=== PATIENT | female | born 1935 | race Caucasian/White ===

== ENCOUNTER 2017-09-15 09:37 | Outpatient (CLI) | payer MEDICARE ==
--- NOTE | 2017-09-15 10:51 | RAD ---
PA AND LATERAL CHEST: Date: 09/15/17 HISTORY: Cough. COMPARISON: None available. FINDINGS: Minimal linear densities are seen in the lower aspect of the right mid lung zone which may be related to atelectasis. Similar findings are seen in the left upper lobe laterally. No consolidation or pleu ral fluid is seen. Cardiac silhouette and pulmonary vasculature are within normal limits. Vascular ca lcifications are seen in the thoracic and abdominal aorta. Degenerative changes are present in the sp ine. IMPRESSION: Linear densities in the right mid lung zone and lateral aspect left upper lung zone which could be re lated to atelectasis or areas of scarring. However, follow-up chest x-ray is recommended to exclude d eveloping areas of pneumonitis. CODE T. POS: [facility]
== END 2017-09-15 09:38 | disposition home or self-care (01) ==
LOC: RAD-FRANK 09:37
PROVIDERS: ATTEND Nurse Practitioner Family
DX: R05 Cough (principal); J98.4 Other disorders of lung
CPT/HCPCS: 71046

== ENCOUNTER 2017-09-18 16:10 | Observation (INO) | payer MEDICARE, OTHER ==
[2017-09-18] MEDS ORDERED: Ondansetron HCl/PF 4 MG/2 ML Vial ONE (16:33)
--- NOTE | 2017-09-18 17:00 | RAD ---
CHEST ONE VIEW 09/18/17 HISTORY: Cough. COMPARISON: None. FINDINGS: Normal cardiac silhouette. The pulmonary vessels and hilum are normal. Costophrenic angles are clear. There are patchy interstitial opacities which may be due to edema or infiltrate. No consolidation or mass. No pneumothorax or osseous abnormalities. IMPRESSION: Interstitial opacities which may be due to edema or infiltrate. Continued surveillance is recommended . POS: [facility]
[2017-09-18 17:06] LABS: ALT (SGPT) 908 U/L (8-55); AST (SGOT) 1260 U/L (5-34); Alkaline Phosphatase 189 U/L (40-150); Anion Gap 16 mmol/L (10-20); BUN (Urea Nitrogen) 22 mg/dL (9.8-20.1); Bilirubin, Total 0.9 mg/dL (0.2-1.2); Calc. Creatinine Clearance 0 mL/min (70-130); Calcium 9.2 mg/dL (7.8-10.44); Carbon Dioxide 24 mmol/L (23-31); Chloride 102 mmol/L (98-107); Estimated GFR-MDRD 73; Globulin 3.2 g/dL (2.4-3.5); Glucose 166 mg/dL (83-110); Lipase 47 U/L (8-78); Potassium 4.1 mmol/L (3.5-5.1); Protein, Total 7.2 g/dL (6.0-8.3); Sodium 138 mmol/L (136-145)
[2017-09-18 17:08] LABS: CKMB 1.8 ng/mL (0-6.6); Troponin I Less than 0.010 ng/mL (< 0.028)
[2017-09-18] MEDS ORDERED: Acetaminophen 325 MG TAB PO PRN (20:00)
[2017-09-18] MEDS ORDERED: Ondansetron ODT 4 MG TAB SL PRN (20:00)
[2017-09-18] MEDS ORDERED: Lisinopril 10 MG TAB PO SCH (20:00)
[2017-09-18] MEDS ORDERED: Ondansetron HCl/PF 4 MG/2 ML Vial IVP PRN (20:00)
[2017-09-18] MEDS ORDERED: Nadolol 40 MG TAB PO SCH (20:00)
[2017-09-18] MEDS ORDERED: hydrALAZINE 20 MG/ML VIAL SLOW IVP SCH (20:15)
[2017-09-18] MEDS ORDERED: Prevnar 13-Val Conj/PF 0.5 ML SYRINGE IM ONE (20:45)
[2017-09-18] MEDS ORDERED: Ibuprofen 200 MG TAB PO PRN (21:54)
[2017-09-18 22:39] VITALS: BMI 28.5
[2017-09-18 22:52] LABS: #Lymphocytes 1.9 thou/uL (1.20-3.40); #Monocytes 0.2 thou/uL (0.11-0.59); #Neutrophils 4.4 thou/uL (1.40-6.50); %Basophils 0.7 % (0.0-1.0); %Eosinophils 0.2 % (0.0-10.0); %Lymphocytes 28.6 % (21.0-51.0); %Monocytes 3.7 % (0.0-10.0); %Neutrophils 66.8 % (42.0-75.0); Mean Corpuscular HGB CONC 34.3 g/dL (32.0-36.0); Mean Corpuscular Hemoglobin 31.3 pg (27.0-31.0); Mean Corpuscular Volume 91.4 fl (81.0-99.0); Mean Platelet Volume 6.6 fL (7.4-10.4); Platelet Count 210 thou/uL (130-400); RBC Distribution Width 11.7 % (11.5-14.5); Red Blood Cell (RBC) Count 4.14 mill/uL (4.20-5.40); White Blood Cell (WBC) Count 6.6 thou/uL (4.8-10.8)
[2017-09-18 23:07] LABS: Phosphorus 3.3 mg/dL (2.3-4.7)
[2017-09-18 23:13] LABS: Troponin I Less than 0.010 ng/mL (< 0.028)
[2017-09-19] MEDS ORDERED: Senokot 8.6 MG TAB PO PRN (01:43)
[2017-09-19] MEDS ORDERED: Calcium Carbonate 500 MG ChewTAB PO PRN (01:43)
[2017-09-19] MEDS ORDERED: Nitroglycerin 0.4 MG TAB (25 Tab Bottle) PO PRN (01:43)
--- NOTE | 2017-09-19 02:07 | HP ---
DATE OF ADMISSION: 09/18/2017 The patient was seen and examined on 09/18/2017 CHIEF COMPLAINT: Generalized weakness along with shortness of breath. HISTORY OF PRESENT ILLNESS: Patient is an 82-year-old female with hypertension who presented to the emergency room with above complaints. Over the last 2 weeks or so, the patient has gradual worsening cough. The cough was productive of sm all amount of thick phlegm. She also had some shortness of breath on mild to moderate exertion. She denied any palpitations, lightheadedness, dizziness or syncope. Three days ago, the patient was nery luated by her primary care physician at [facility] and was diagnosed with suspected pneumonia . She was started on azithromycin and prednisone. She felt better the next day. However, over the last 2 days or so, patient has been nauseous without significant vomiting. She denied any abdominal discomfort. Her shortness of breath and coughing has worsened over the last 24 hours. In the emergency room, her vital signs showed temperature 98.7, respiration 18, pulse rate of 60 with a blood pressure 171/83 with O2 saturation 97% on room air. EKG showed left bundle branch block. C hest x-ray showed increased interstitial markings. Her LFTs were abnormal at AST 1260, ALT 908, martina line phosphatase 189. She received 500 mL of NS along with Zofran in the emergency room. PAST MEDICAL HISTORY: Hypertension, hyperlipidemia, recently diagnosed pneumonia. PAST SURGICAL HISTORY: Hysterectomy. ALLERGIES: The patient is allergic to PENICILLIN. CURRENT HOME MEDICATIONS: Ezetimibe 10 mg daily, lisinopril 10 mg daily, nadolol 40 mg daily, azithr omycin and prednisone started 2 days ago. SOCIAL HISTORY: Currently lives at home, alone. No smoking, alcohol or drug use. She is full code, makes her own decision with the help of her family. FAMILY HISTORY: She denies any premature coronary artery disease. REVIEW OF SYSTEMS: The following complete review of systems was negative, unless otherwise mentioned in the HPI or below: Constitutional: Weight loss or gain, ability to conduct usual activities. Skin: Rash, itching. Eyes: Double vision, pain. ENT/Mouth: Nose bleeding, neck stiffness, pain, tenderness. Cardiovascular: Palpitations, dyspnea on exertion, orthopnea. Respiratory: Shortness of breath, wheezing, cough, hemoptysis, fever or night sweats. Gastrointestinal: Poor appetite, abdominal pain, heartburn, nausea, vomiting, constipation, or diarr hea. Genitourinary: Urgency, frequency, dysuria, nocturia. Musculoskeletal: Pain, swelling. Neurologic/Psychiatric: Anxiety, depression. Allergy/Immunologic: Skin rash, bleeding tendency. PHYSICAL EXAMINATION: VITAL SIGNS: As discussed above. GENERAL: An 82-year-old female in no apparent distress. Feels generally weak. HEENT: Head is atraumatic, normocephalic. Sclerae are anicteric. Moist mucous membrane, no oral le mary. NECK: Supple, no JVD appreciated. No carotid bruit. LUNGS: Showed scattered rhonchi, without any wheezing. Lungs were symmetrical. Minimal bibasilar r ales noted. HEART: S1, S2 present. Regular rate and rhythm. No rubs or gallops appreciated. ABDOMEN: Soft, nontender, bowel sounds present. EXTREMITIES: No edema or calf tenderness. NEUROLOGIC: Grossly nonfocal, moves all four extremities. PSYCHIATRY: Alert, awake, oriented x3. SKIN: Warm and dry. LYMPH NODES: No palpable lymph nodes in the neck. PERIPHERAL VASCULAR: Radial pulses palpable bilaterally. MUSCULOSKELETAL: No joint swelling or tenderness. LABORATORY DATA AND X-RAY FINDINGS: BNP 554. Troponins were negative. TSH normal. AST, ALT and al kaline phosphatase as discussed above. BUN 22, creatinine 0.76 with normal sodium and potassium. CB C showed WBC 6.6 with hemoglobin 13, platelet count of 210. EKG and chest x-ray by my review as disc ussed above. IMPRESSION AND PLAN: 1. Shortness of breath, multifactorial. The patient has elevated BNP with recently diagnosed pneumo daniela. An echocardiogram will be obtained. Cardiology will be consulted. The patient will be kept n. p.o. past midnight. 2. Abnormal liver function tests. Possibilities include medication associated hepatitis versus abno rmal LFTs from passive hepatic congestion. The patient was started on azithromycin and prednisone 2 days ago. We will check right upper quadrant ultrasound. 3. Recently diagnosed pneumonia, on azithromycin and prednisone. Respiratory viral panel has been d one and pending at this time. Please note that the patient has cough that has been ongoing for 2 wee ks or so. 4. Chronic kidney disease stage 2. 5. Hypertension. Home medications will be resumed. 6. Left bundle branch block, chronic. 7. Hyperlipidemia. We will hold statins for now due to abnormal liver function tests. Plan of care was discussed with the patient in detail. She stated understanding.
[2017-09-19 04:54] LABS: Anion Gap 12 mmol/L (10-20); BUN (Urea Nitrogen) 19 mg/dL (9.8-20.1); Calc. Creatinine Clearance 68 mL/min (70-130); Carbon Dioxide 25 mmol/L (23-31); Chloride 104 mmol/L (98-107); Estimated GFR-MDRD 76; Glucose 105 mg/dL (83-110); Potassium 3.9 mmol/L (3.5-5.1); Sodium 137 mmol/L (136-145)
[2017-09-19 04:57] LABS: ALT (SGPT) 640 U/L (8-55); AST (SGOT) 450 U/L (5-34); Albumin 3.7 g/dL (3.4-4.8); Alkaline Phosphatase 201 U/L (40-150); Bilirubin, Direct 0.3 mg/dL (0.1-0.3); Bilirubin, Total 0.7 mg/dL (0.2-1.2); Protein, Total 6.7 g/dL (6.0-8.3)
[2017-09-19 05:01] LABS: Troponin I Less than 0.010 ng/mL (< 0.028)
[2017-09-19] MEDS: Aspirin 325 mg Enteric Coated Tablet PO SCH (08:23)
[2017-09-19] MEDS: Furosemide 20 MG/2 ML VIAL SLOW IVP SCH (08:24)
[2017-09-19] MEDS ORDERED: Lisinopril 10 MG TAB PO SCH ×3 (09:00→21:00)
[2017-09-19] MEDS ORDERED: Nadolol 40 MG TAB PO SCH (09:00)
[2017-09-19] MEDS ORDERED: Aspirin 325 MG TAB PO SCH (09:00)
[2017-09-19] MEDS: Ezetimibe 10 MG TAB PO SCH (09:36)
[2017-09-19] MEDS: guaiFENesin ER 600 MG TAB PO SCH ×2 (09:37→19:44)
--- NOTE | 2017-09-19 09:54 | ULT ---
GALLBLADDER ULTRASOUND: Date: 09/19/17 HISTORY: Abnormal liver function tests. COMPARISON: None. TECHNIQUE: Utilizing multihertz transducer, sonographic imaging of the right upper quadrant is performed in the longitudinal and transverse plane. FINDINGS: Increased echogenicity of the liver may be due to hepatic steatosis or hepatocellular disease. Subseq uent evaluation for hepatic masses and intrahepatic biliary dilatation is limited. Right hepatic lobe measures 12.1 cm. Pancreas is obscured by bowel gas. Suboptimal evaluation of gallbladder. Questionable wall echo shadow sign, which would imply extensive cholelithiasis. Questionable gallbladder wall thickening. Negative Bateman's sign. Common bile duct d iameter is 0.7 cm. No hydronephrosis. Right kidney measures 5.2 x 8.9 x 5.3 cm. IMPRESSION: Questionable wall echo shadow sign implying gallbladder filled with multiple gallstones. Similar appe arance can be seen in a patient who has had a previous cholecystectomy with bowel loop now entering t he gallbladder fossa. Clinical correlation, along with correlation with surgical history is recommend ed. Common bile duct appears to be enlarged. Further evaluation with HIDA scan may be beneficial. POS: [facility]
[2017-09-19] MEDS ORDERED: Carvedilol 6.25 MG TAB PO SCH (10:45)
--- NOTE | 2017-09-19 14:41 | CON ---
DATE OF CONSULTATION: 09/19/2017 CARDIOLOGY CONSULTATION REASON FOR CONSULTATION: Shortness of breath. HISTORY OF PRESENT ILLNESS: Mrs. Carrasquillo is a pleasant 82-year-old white female who [facility] for shortness of breath and cough. She was diagnosed by her PCP with pneumonia and given some ant ibiotics. She did see some improvement for about 2-3 days, but then she started getting worse again, so she decided to come in for evaluation. She was admitted for concern of complicated pneumonia marc zehra CHF as her BNP was slightly elevated, so Cardiology is being consulted for this. Currently, Mrs. Carrasquillo is feeling pretty much the same as she did yesterday. No significant improvemen t in her symptoms. Continues to have cough. She says she has been dealing with it for the last aurelia h since the beginning of August at least. She has never had any heart problems in the past. PAST MEDICAL HISTORY: 1. Hypertension. 2. Hyperlipidemia. PAST SURGICAL HISTORY: Hysterectomy. OUTPATIENT MEDICATIONS: Include, 1. Zetia 10 mg a day. 2. Lisinopril 10 mg a day. 3. Nadolol 40 mg b.i.d. 4. Azithromycin and prednisone given just 2 days ago. ALLERGIES: PENICILLIN. SOCIAL HISTORY: Lives at home. No alcohol, tobacco or drugs. FAMILY HISTORY: Noncontributory. REVIEW OF SYSTEMS: A 12 point review of systems was done and it is all negative unless stated in his tory of present illness. PHYSICAL EXAMINATION: VITAL SIGNS: Temperature 98.6, pulse 59, respiratory rate 24, satting 95% on room air, blood pressur e 216/98. GENERAL: Awake, alert, oriented x3, in no distress. HEENT: Normocephalic, atraumatic. NECK: Supple. LUNGS: Clear. CARDIOVASCULAR: S1, S2, no S3 or S4, no murmurs, no rubs. ABDOMEN: Soft, positive bowel sounds. EXTREMITIES: Trace edema. SKIN: Warm and dry. LABORATORY DATA: Laboratory work was reviewed. White count of 6.6, hemoglobin of 13, hematocrit of 37 and platelet count of 210. Chemistries were unremarkable except for AST, ALT and alkaline phospha tase, were all elevated, BNP was 554. Troponin was negative x3. Normal TSH, normal lipase, albumin was 4.0. IMAGING DATA: EKG was reviewed, there is bundle branch block. ASSESSMENT AND PLAN: Shortness of breath: Chest x-ray consistent with edema versus infiltrate. BNP is just slightly elevated. At this moment in time, I would wait for echocardiogram to decide whethe r there is any level of heart failure. Most likely, she does have diastolic dysfunction and her bloo d pressure being this high as is not helping, so we will try to control it by increasing her lisinopr il to 20 mg twice a day and we will continue to give p.r.n. hydralazine. We will change nadolol to C oreg at a low dose as she is somewhat bradycardic. Thank you for letting me to participate in care of your patient. Further recommendations per results of echo.
--- NOTE | 2017-09-19 15:34 | CT ---
CT OF THE ABDOMEN AND PELVIS WITHOUT CONTRAST: Date: 09/19/17 PROVIDED CLINICAL HISTORY: Abdominal pain, possible gallstones on ultrasound. FINDINGS: The visualized lung bases are free of significant opacity. There is a large, exophytic, simple appearing cyst emanating from the superior pole of the left kidne y measuring about 7.2 cm. The solid abdominal organs demonstrate an otherwise unremarkable unenhanced CT appearance, suboptimally evaluated without contrast. The gallbladder is conspicuously decompressed. There are several small calcifications present along t he fundus of the gallbladder; however, these do not appear dependently located. No additional calcifi ed gallstones are seen. The gastric antrum and duodenum immediately overlie this region and may have produced the ultrasound appearance described. There is no bowel dilatation, inflammatory fat stranding, free fluid, or free air apparent. Occasional vascular calcifications are seen. The osseous structures demonstrate no concerning lytic or blastic lesions. IMPRESSION: Several calcifications are noted associated with the gallbladder wall, nonspecific. No definite CT ev idence for gallstones, though some gallstone composition types can be radiolucent. Given the position of the duodenum and antrum on CT, it is likely that these produce the sonographic appearance describ ed. POS: [facility]
--- NOTE | 2017-09-19 15:57 | PDOC.PN ---
- Subjective Encounter Start Date: 09/19/17 Encounter Start Time: 15:55 Subjective: feels poorly,left sided AP,nausea,dry mouth & weakness. -: cough persists -: c/o not getting enough air - Objective Resuscitation Status: Resuscitation Status FULL:Full Resuscitation MAR Reviewed: Yes Vital Signs & Weight: Vital Signs (12 hours) Temp Pulse Resp BP Pulse Ox 09/19/17 15:05 98.3 F 59 L 16 162/71 H 92 L 09/19/17 12:03 97.3 F L 61 20 163/69 H 92 L 09/19/17 11:05 52 L 16 09/19/17 09:39 199/90 H 09/19/17 08:20 98.6 F 59 L 24 H 216/98 H 95 09/19/17 07:57 98.4 F 55 L 16 Weight Weight 156 lb I&O: 09/18/17 09/19/17 09/20/17 06:59 06:59 06:59 Intake Total 720 10 Output Total 1100 900 Balance -380 -890 Result Diagrams: 09/18/17 22:38 09/19/17 04:09 Additional Labs: Laboratory Tests 09/18/17 09/18/17 09/18/17 16:40 22:38 22:38 AST 1260 H ALT 908 H Alkaline Phosphatase 189 H B-Natriuretic Peptide 554.4 H TSH 3rd Generation 0.9688 09/19/17 04:09 AST 450 H ALT 640 H Alkaline Phosphatase 201 H B-Natriuretic Peptide TSH 3rd Generation Microbiology 09/19/17 00:38 Nasopharyngeal swab Respiratory Panel (PCR) - Final Phys Exam - Physical Examination Constitutional: NAD HEENT: PERRLA, moist MMs, sclera anicteric, oral pharynx no lesions Neck: no nodes, no JVD, supple, full ROM Respiratory: no wheezing, no rales, no rhonchi, clear to auscultation bilateral Cardiovascular: RRR, no significant murmur, no rub, gallop Gastrointestinal: soft, non-tender, no distention, positive bowel sounds Musculoskeletal: no edema, pulses present Neurological: non-focal, normal sensation, moves all 4 limbs Psychiatric: normal affect, A&O x 3 Skin: no rash Dx/Plan (1) Dyspnea Code(s): R06.00 - DYSPNEA, UNSPECIFIED Status: Acute Qualifiers: Dyspnea type: dyspnea on exertion Qualified Code(s): R06.09 - Other forms of dyspnea (2) PNA (pneumonia) Code(s): J18.9 - PNEUMONIA, UNSPECIFIED ORGANISM Status: Acute (3) Fluid overload, unspecified Code(s): E87.70 - FLUID OVERLOAD, UNSPECIFIED Status: Acute (4) LFTs abnormal Code(s): R94.5 - ABNORMAL RESULTS OF LIVER FUNCTION STUDIES Status: Acute (5) HTN (hypertension) Code(s): I10 - ESSENTIAL (PRIMARY) HYPERTENSION Status: Acute (6) Gall bladder disease Code(s): K82.9 - DISEASE OF GALLBLADDER, UNSPECIFIED Status: Acute Comment: Calcifications... ? Porcelain Gallbladder. - Plan continue antibiotics, out of bed/ambulate, DVT proph w/SCDs cont low dose lasix for possible mild fluid OL.ECHO pending.cardiology recs -: -Coreg instead of nadolol.increased lisniopril -: No gallstones but gallbladder calcification w Abnl LFT.will consult GS -: may need Cholecystectomy for all these non specific symtoms/LFT elevation -: HD stable.Monitor I/Os.am labs. LFT trending down. * .restart Outpt ABx and Po steroids to finish course. Review of Systems - Review of Systems Constitutional: weakness, malaise Respiratory: Cough, Shortness of Breath, SOB with Excertion. negative: Dry, Hemoptysis, Pleuritic Pain, Sputum, Wheezing Cardiovascular: negative: chest pain, palpitations, orthopnea, paroxysmal nocturnal dyspnea, edema, light headedness, other Gastrointestinal: negative: Nausea, Vomiting, Abdominal Pain, Diarrhea, Constipation, Melena, Hematochezia, Other Genitourinary: negative: Dysuria, Frequency, Incontinence, Hematuria, Retention , Other Musculoskeletal: negative: Neck Pain, Shoulder Pain, Arm Pain, Back Pain, Hand Pain, Leg Pain, Foot Pain, Other Skin: negative: Rash, Lesions, Vasquez, Bruising, Other Neurological: negative: Weakness, Numbness, Incoordination, Change in Speech, Confusion, Seizures, Other - Medications/Allergies Allergies/Adverse Reactions: Allergies Allergy/AdvReac Type Severity Reaction Status Date / Time Penicillins Allergy Verified 09/18/17 19:51 Medications: Current Medications Albuterol/Ipratropium (Duoneb) 3 ml NEB [id number] PRN PRN Reason: SOB &/or Wheezing Last Admin: 09/19/17 11:05 Dose: 3 ml Aspirin (Ecotrin) 325 mg PO DAILY [facility] Last Admin: 09/19/17 08:23 Dose: 325 mg Calcium Carbonate (Tums) 1,000 mg PO Q4H PRN PRN Reason: Heartburn or Indigestion Carvedilol (Coreg) 6.25 mg PO BID-[facility] Ezetimibe (Zetia) 10 mg PO DAILY [facility] Last Admin: 09/19/17 09:36 Dose: 10 mg Furosemide (Lasix) 20 mg SLOW IVP DAILY [facility] Last Admin: 09/19/17 08:24 Dose: 20 mg Guaifenesin (Mucinex) 1,200 mg PO Q12HR [facility] Last Admin: 09/19/17 09:37 Dose: 1,200 mg Hydralazine HCl (Apresoline) 10 mg SLOW IVP Q4H PRN PRN Reason: Blood Pressure Lisinopril (Zestril) 20 mg PO DAILY [facility] Nitroglycerin (Nitrostat) 0.4 mg PO Q5MIN PRN PRN Reason: Chest Pain Senna (Senokot) 2 tab PO HSPRN PRN PRN Reason: Constipation Sodium Chloride (Flush - Normal Saline) 10 ml IVF Q12HR [facility] Last Admin: 09/19/17 08:24 Dose: 10 ml Sodium Chloride (Flush - Normal Saline) 10 ml IVF PRN PRN PRN Reason: Saline Flush
--- NOTE | 2017-09-19 16:12 | PDOC.EVN ---
Event Note - Event Note Event Note: Code status discussed with Pt in detail. After explanation of the different resuscitation measures, she is a Full Code.
[2017-09-19] MEDS: Carvedilol 6.25 MG TAB PO SCH (16:20)
[2017-09-19] MEDS: Azithromycin 250 MG TAB PO SCH (16:22)
[2017-09-19] MEDS: predniSONE 50 MG TAB PO SCH (16:22)
--- NOTE | 2017-09-19 18:16 | CON ---
DATE OF CONSULTATION: 09/19/2017 CHIEF COMPLAINT: Cough. HISTORY: This is an 82-year-old female who came to the hospital with a productive cough. She was co ughing so much and bringing up phlegm. She said that she started having some nausea and vomiting. O n evaluation, she was found to have elevated liver function tests, so they did a workup. She denies any abdominal pain. PAST MEDICAL HISTORY: Significant for hypertension, hyperlipidemia, and pneumonia. PAST SURGICAL HISTORY: Hysterectomy. MEDICATIONS: Lisinopril, nadolol, azithromycin, prednisone, Ezetimibe 10 daily. SOCIAL HISTORY: She lives alone. No tobacco or alcohol. PHYSICAL EXAMINATION: VITAL SIGNS: Temperature 98.3, pulse 59, blood pressure 162/71. GENERAL: She is awake, alert, in no apparent distress. HEENT: No jaundice. LUNGS: Clear. HEART: Regular rate and rhythm. ABDOMEN: Soft, nondistended, nontender. LABORATORY DATA AND X-RAY FINDINGS: Her white count 6.6, H&H is 13 and 37, platelet count 210. Elec trolytes are fine. AST is 450, ALT is 640, alkaline phosphatase of 201. Her common bile duct was so mewhat enlarged. They did not really see any definite gallstones on ultrasound. She had a CT scan t hat confirmed that they did not see any gallstones. ASSESSMENT: This elevated liver function may be just related to underlying cardiac dysfunction and m edications, but with the enlarged common duct, may want to consider GI consult. Also, she may benefi t from a HIDA scan.
[2017-09-20 04:25] LABS: #Lymphocytes 2.3 thou/uL (1.20-3.40); #Monocytes 0.4 thou/uL (0.11-0.59); #Neutrophils 5.2 thou/uL (1.40-6.50); %Basophils 0.2 % (0.0-1.0); %Eosinophils 0.2 % (0.0-10.0); %Lymphocytes 28.4 % (21.0-51.0); %Monocytes 5.1 % (0.0-10.0); %Neutrophils 66.1 % (42.0-75.0); Hemoglobin 13.1 g/dL (12.0-16.0); Mean Corpuscular HGB CONC 34.9 g/dL (32.0-36.0); Mean Corpuscular Hemoglobin 31.2 pg (27.0-31.0); Mean Corpuscular Volume 89.4 fl (81.0-99.0); Mean Platelet Volume 6.6 fL (7.4-10.4); Platelet Count 253 thou/uL (130-400); RBC Distribution Width 11.7 % (11.5-14.5); Red Blood Cell (RBC) Count 4.19 mill/uL (4.20-5.40); White Blood Cell (WBC) Count 7.9 thou/uL (4.8-10.8)
[2017-09-20] MEDS: hydrALAZINE 20 MG/ML VIAL SLOW IVP PRN ×2 (04:30→18:45)
[2017-09-20 04:37] LABS: ALT (SGPT) 402 U/L (8-55); AST (SGOT) 131 U/L (5-34); Albumin 3.6 g/dL (3.4-4.8); Alkaline Phosphatase 179 U/L (40-150); Anion Gap 13 mmol/L (10-20); BUN (Urea Nitrogen) 21 mg/dL (9.8-20.1); Bilirubin, Total 0.7 mg/dL (0.2-1.2); Calc. Creatinine Clearance 62 mL/min (70-130); Calcium 8.8 mg/dL (7.8-10.44); Carbon Dioxide 25 mmol/L (23-31); Chloride 100 mmol/L (98-107); Estimated GFR-MDRD 68; Globulin 2.9 g/dL (2.4-3.5); Glucose 142 mg/dL (83-110); Potassium 3.5 mmol/L (3.5-5.1); Protein, Total 6.5 g/dL (6.0-8.3); Sodium 134 mmol/L (136-145)
[2017-09-20 04:41] LABS: Troponin I Less than 0.010 ng/mL (< 0.028)
[2017-09-20] MEDS ORDERED: cloNIDine 0.1 MG TAB PO PRN (08:28)
[2017-09-20] MEDS ORDERED: Lisinopril 10 MG TAB PO SCH (09:00)
[2017-09-20] MEDS ORDERED: Metolazone 5 MG TAB PO SCH (09:15)
[2017-09-20] MEDS ORDERED: Morphine 5 MG/ML SYRINGE SLOW IVP SCH (11:45)
[2017-09-20] MEDS: guaiFENesin ER 600 MG TAB PO SCH ×2 (13:47→19:56)
[2017-09-20] MEDS: Ezetimibe 10 MG TAB PO SCH (13:47)
[2017-09-20] MEDS: Carvedilol 6.25 MG TAB PO SCH ×2 (13:47→17:31)
[2017-09-20] MEDS: Aspirin 325 mg Enteric Coated Tablet PO SCH (13:48)
[2017-09-20] MEDS: Furosemide 20 MG/2 ML VIAL SLOW IVP SCH (13:49)
--- NOTE | 2017-09-20 14:08 | PDOC.PN ---
- Subjective Encounter Start Date: 09/20/17 Encounter Start Time: 14:06 Subjective: wants to go home & upset about it with resultant high BP -: feels tired,still coughing. - Objective Resuscitation Status: Resuscitation Status FULL:Full Resuscitation MAR Reviewed: Yes Vital Signs & Weight: Vital Signs (12 hours) Temp Pulse Resp BP BP Pulse Ox 09/20/17 11:13 98.1 F 63 18 205/86 H 93 L 09/20/17 08:00 98.1 F 62 18 09/20/17 07:18 98.1 F 62 18 180/76 H 91 L 09/20/17 05:24 140/65 09/20/17 04:30 60 09/20/17 04:20 98.7 F 60 16 180/78 H 93 L Weight Weight 153 lb 6.4 oz I&O: 09/19/17 09/20/17 09/21/17 06:59 06:59 06:59 Intake Total 720 1200 Output Total 1100 2400 Balance -380 -1200 Result Diagrams: 09/20/17 03:58 09/20/17 03:58 Additional Labs: Laboratory Tests 09/18/17 09/18/17 09/18/17 16:40 16:40 22:38 AST 1260 H ALT 908 H Alkaline Phosphatase 189 H Troponin I Less than 0.010 Less than 0.010 B-Natriuretic Peptide 09/18/17 09/19/17 09/19/17 22:38 04:09 04:09 AST 450 H ALT 640 H Alkaline Phosphatase 201 H Troponin I Less than 0.010 B-Natriuretic Peptide 554.4 H 09/20/17 09/20/17 09/20/17 03:58 03:58 03:58 AST 131 H ALT 402 H Alkaline Phosphatase 179 H Troponin I Less than 0.010 B-Natriuretic Peptide 243.3 H Phys Exam - Physical Examination Constitutional: NAD HEENT: PERRLA, moist MMs, sclera anicteric, oral pharynx no lesions Neck: no nodes, no JVD, supple, full ROM Respiratory: no wheezing, no rales, no rhonchi, clear to auscultation bilateral Cardiovascular: RRR, no significant murmur, no rub, gallop Gastrointestinal: soft, non-tender, no distention, positive bowel sounds Musculoskeletal: no edema, pulses present Neurological: non-focal, normal sensation, moves all 4 limbs Psychiatric: A&O x 3 apperas depressed Skin: no rash Dx/Plan (1) Acute diastolic CHF (congestive heart failure) Code(s): I50.31 - ACUTE DIASTOLIC (CONGESTIVE) HEART FAILURE Status: Acute (2) Uncontrolled hypertension Code(s): I10 - ESSENTIAL (PRIMARY) HYPERTENSION Status: Acute (3) PNA (pneumonia) Code(s): J18.9 - PNEUMONIA, UNSPECIFIED ORGANISM Status: Acute (4) LFTs abnormal Code(s): R94.5 - ABNORMAL RESULTS OF LIVER FUNCTION STUDIES Status: Acute Comment: yahairavictor manuel passive heaptic congestion from CHF (5) Fluid overload, unspecified Code(s): E87.70 - FLUID OVERLOAD, UNSPECIFIED Status: Acute Qualifiers: Hypervolemia type: other Qualified Code(s): E87.79 - Other fluid overload (6) Dyspnea Code(s): R06.00 - DYSPNEA, UNSPECIFIED Status: Resolved Qualifiers: Dyspnea type: dyspnea on exertion Qualified Code(s): R06.09 - Other forms of dyspnea (7) HTN (hypertension) Code(s): I10 - ESSENTIAL (PRIMARY) HYPERTENSION Status: Acute (8) Gall bladder disease Code(s): K82.9 - DISEASE OF GALLBLADDER, UNSPECIFIED Status: Acute Comment: Calcifications... ? Porcelain Gallbladder. - Plan plan discussed w/ family, PT/OT, social sciences lecturer, incentive spirometry, out of bed/ambulate, DVT proph w/SCDs BP uncontrolled. lisinopril increased again today.monitor.d/y anxiety -: 1 dose zaroxolyn.cont lasix.cardiology following. BB,jorge-I. -: ECHO shows diastoilc dysfunction -: cont PO prednisone & Azithromycin for possible PNA/ac bronchitis. -: mucinex,nebs .O2 weaned off * .appreciate GS input. HIDA today-results pending. work upcan be finished as an Outpt w GI if no Acute cholecystitis. * Home when BP stable. * LFT trending down Review of Systems - Review of Systems Constitutional: weakness, malaise. negative: fever, chills, sweats, other ENT: negative: Ear Pain, Ear Discharge, Nose Pain, Nose Discharge, Nose Congestion, Mouth Pain, Mouth Swelling, Throat Pain, Throat Swelling, Other Respiratory: negative: Cough, Dry, Shortness of Breath, Hemoptysis, SOB with Excertion, Pleuritic Pain, Sputum, Wheezing Cardiovascular: negative: chest pain, palpitations, orthopnea, paroxysmal nocturnal dyspnea, edema, light headedness, other Gastrointestinal: negative: Nausea, Vomiting, Abdominal Pain, Diarrhea, Constipation, Melena, Hematochezia, Other Genitourinary: negative: Dysuria, Frequency, Incontinence, Hematuria, Retention , Other Musculoskeletal: negative: Neck Pain, Shoulder Pain, Arm Pain, Back Pain, Hand Pain, Leg Pain, Foot Pain, Other Skin: negative: Rash, Lesions, Vasquez, Bruising, Other Neurological: negative: Weakness, Numbness, Incoordination, Change in Speech, Confusion, Seizures, Other - Medications/Allergies Allergies/Adverse Reactions: Allergies Allergy/AdvReac Type Severity Reaction Status Date / Time Penicillins Allergy Verified 09/18/17 19:51 Medications: Current Medications Albuterol/Ipratropium (Duoneb) 3 ml NEB [id number] PRN PRN Reason: SOB &/or Wheezing Last Admin: 09/19/17 11:05 Dose: 3 ml Aspirin (Ecotrin) 325 mg PO DAILY [facility] Last Admin: 09/20/17 13:48 Dose: 325 mg Azithromycin (Zithromax) 250 mg PO 1700 [facility] Last Admin: 09/19/17 16:22 Dose: 250 mg Calcium Carbonate (Tums) 1,000 mg PO Q4H PRN PRN Reason: Heartburn or Indigestion Carvedilol (Coreg) 6.25 mg PO BID-[facility] Last Admin: 09/20/17 13:47 Dose: 6.25 mg Clonidine (Catapres) 0.1 mg PO Q4H PRN PRN Reason: SBP>150 Ezetimibe (Zetia) 10 mg PO DAILY [facility] Last Admin: 09/20/17 13:47 Dose: 10 mg Furosemide (Lasix) 20 mg SLOW IVP DAILY [facility] Last Admin: 09/20/17 13:49 Dose: 20 mg Guaifenesin (Mucinex) 1,200 mg PO Q12HR [facility] Last Admin: 09/20/17 13:47 Dose: 1,200 mg Hydralazine HCl (Apresoline) 10 mg SLOW IVP Q4H PRN PRN Reason: Blood Pressure Last Admin: 09/20/17 04:30 Dose: 10 mg Lisinopril (Zestril) 20 mg PO DAILY [facility] Last Admin: 09/20/17 13:48 Dose: 20 mg Nitroglycerin (Nitrostat) 0.4 mg PO Q5MIN PRN PRN Reason: Chest Pain Prednisone (Prednisone) 50 mg PO 1700 [facility] Stop: 09/20/17 17:01 Last Admin: 09/19/17 16:22 Dose: 50 mg Senna (Senokot) 2 tab PO HSPRN PRN PRN Reason: Constipation Sodium Chloride (Flush - Normal Saline) 10 ml IVF Q12HR [facility] Last Admin: 09/20/17 13:49 Dose: 10 ml Sodium Chloride (Flush - Normal Saline) 10 ml IVF PRN PRN PRN Reason: Saline Flush
--- NOTE | 2017-09-20 14:20 | NM ---
HIDA SCAN: Date: 09/20/17 PROVIDED CLINICAL HISTORY: Enlarged common duct, elevated LFTs. RADIOPHARMACEUTICAL: 5.1 mCi technetium-99m labeled mebrofenin IV. FINDINGS: Comparison is made with the CT examination performed 09/19/17. On the CT examination, the gallbladder is located near the lateral right hepatic margin. It is decomp ressed, not distended, demonstrates no wall thickening or surrounding pericholecystic inflammatory ch greg. After administration of radiotracer, there is prompt uptake of radiotracer by the hepatic parenchyma. There is excretion into the biliary system and bowel in a normal amount of time. The gallbladder is not visualized during the initial 60 minutes which imaging was obtained. Morphine was administered an d delayed images were obtained. Radiopharmaceutical is noted in the region of the mike hepatis and d uodenum/stomach. There is no radiotracer seen in the expected location of the gallbladder. IMPRESSION: 1. No evidence for complete common duct obstruction. 2. Nonvisualization of the gallbladder. Given the nondistended, normal appearing gallbladder on CT e xamination, acute cholecystitis is felt unlikely, though clinical correlation is necessary. POS: CHUCK
[2017-09-20] MEDS ORDERED: NIFEdipine XL 30 MG TAB PO SCH (17:15)
[2017-09-20] MEDS: Azithromycin 250 MG TAB PO SCH (17:29)
[2017-09-20] MEDS: predniSONE 50 MG TAB PO SCH (17:30)
--- NOTE | 2017-09-20 18:25 | PDOC.CTH ---
Cardiology Progress Note - Subjective Her breathing has improved since starting lasix. - Objective Vital Signs Temp Pulse Resp BP Pulse Ox 09/20/17 16:52 53 L 185/82 H 09/20/17 15:09 97.7 F 55 L 16 181/84 H 94 L 09/20/17 11:13 98.1 F 63 18 205/86 H 93 L 09/20/17 08:00 98.1 F 62 18 09/20/17 07:18 98.1 F 62 18 180/76 H 91 L Weight 153 lb 6.4 oz 09/19/17 09/20/17 09/21/17 06:59 06:59 06:59 Intake Total 720 1200 480 Output Total 1100 2400 Balance -380 -1200 480 - Physical Examination General/Neuro: alert & oriented x3, NAD Neck: no JVD present Lungs: CTA, unlabored respirations Heart: RRR Abdomen: NT/ND Extremities: + edema B (1+) - Telemetry Telemetry Rhythm: NSR - Labs Result Diagrams: 09/20/17 03:58 09/20/17 03:58 Troponin/CKMB CK-MB (CK-2) 1.8 ng/mL (0-6.6) 09/18/17 16:40 Troponin I Less than 0.010 ng/mL (< 0.028) 09/20/17 03:58 - Assessment/Plan 1. Acute on chronic diastolic heart failure 2. LVH 3. HTN. 4. Mild AI. PLAN: - BP control. - Elevated BP may be related to prednisone use. Will increase ACEI and see how she does today. - Will follow.
[2017-09-20] MEDS: Lisinopril 20 MG TAB PO SCH (19:56)
[2017-09-21 08:41] VITALS: BP 177/80; TEMP 97.6
[2017-09-21] MEDS ORDERED: NIFEdipine XL 30 MG TAB PO SCH (09:00)
[2017-09-21] MEDS: Ezetimibe 10 MG TAB PO SCH (09:55)
[2017-09-21] MEDS: Aspirin 325 mg Enteric Coated Tablet PO SCH (09:55)
[2017-09-21] MEDS: Carvedilol 6.25 MG TAB PO SCH (09:55)
[2017-09-21] MEDS: Lisinopril 20 MG TAB PO SCH (09:55)
[2017-09-21] MEDS: guaiFENesin ER 600 MG TAB PO SCH (09:55)
[2017-09-21] MEDS: Furosemide 20 MG/2 ML VIAL SLOW IVP SCH ×2 (09:56→09:58)
--- NOTE | 2017-09-21 15:24 | DIS ---
DATE OF ADMISSION: 09/18/2017 DATE OF DISCHARGE: 09/21/2017 CONDITION AT THE TIME OF DISCHARGE: Stable and improved. DISCHARGE DIAGNOSES: 1. Acute on chronic congestive diastolic heart failure. 2. 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 3. Acute bronchitis. 4. Uncontrolled hypertension with history of essential hypertension. 5. Chronic kidney disease stage 2. 6. Chronic left bundle-branch block. 7. Dyslipidemia. PRIMARY CARE PHYSICIAN: Mirela Pierce, Nurse Practitioner. DISCHARGE FOLLOWUP: 1. [facility]. 2. Primary care physician on 09/28/2017 at 10:[address] Luis Douglas in 2-3 weeks. INHOUSE CONSULTATIONS: 1. Cardiology, Dr. Douglas. 1. General Surgery, Dr. Gifford. PROCEDURES DONE IN THE HOSPITAL: 1. Abdominal ultrasound which shows questionable echo shadow sign implying gallbladder filled with m ultiple gallstones. 2. CT scan of the abdomen and pelvis which did not show any gallstone, but showed calcification of t he gallbladder wall. 3. HIDA scan which is essentially unremarkable. No actual signs suggesting acute cholecystitis and there is no evidence of CBD obstruction. 4. Transthoracic echocardiogram which showed grade 2/3 diastolic dysfunction with EF of 50% to 55% w ithout any significant valvular abnormality. HISTORY OF PRESENT ILLNESS: Ms. Carrasquillo is an 82-year-old female with past medical history of hypertens ion, dyslipidemia, and recent diagnosis of pneumonia as an outpatient on steroids and oral antibiotic s who came into the hospital with complaints of generalized weakness and worsening shortness of breat h despite the antibiotic and the steroids. Upon presentation, her blood pressure was 171/83 and oxyg en saturation 97% on room air. Chest x-ray showed increased interstitial marking and her LFTs were a bnormal with AST 1260, ALT 908, alkaline phosphatase 189. She was admitted with a presumptive diagno sis of possible fluid overload. Her BNP was also elevated to 554 and cardiac enzymes were negative. Echocardiogram was ordered and Cardiology was consulted. Please see admission history and physical for further details. HOSPITAL COURSE: Dr. Douglas saw the patient and she was started on diuretics on admission. This was continued and Dr. Douglas agreed with that. She had elevations and spikes of her blood pressure for which her blood pressure medications were adjusted. She was taking nadolol, which was changed to Cor eg by Cardiology and her lisinopril dose was increased. She was also started on nifedipine. This he lped improve her blood pressure. The echocardiogram suggested diastolic dysfunction, so Lasix was co ntinued. Eventually, she was euvolemic. She was set up with [facility] with regards to katrin t and is being discharged home on Lasix on as needed basis with outpatient followup with Cardiology. With regards to her elevated liver enzymes, they were trended on a daily basis and they trended down. It was most likely secondary to passive hepatic congestion from CHF. She did undergo an abdominal ultrasound; however, to rule out the pathology and it was inconclusive and equivocal for gallstones. For this reason, she underwent a CT scan which showed a calcification of the gallbladder. For this reason and because of her nonspecific symptoms of malaise, weakness, abdominal pain and nausea, Gener al Surgery was consulted. Dr. Gifford saw the patient and did not think that it is because of any porc elain gallbladder or gallstones. He ordered a HIDA scan which was done and was unremarkable. By this time, the patient was euvolemic; however, now her blood pressure started to spike necessitati ng changes in her blood pressure medications. Eventually, her blood pressure was under better contro l as of this morning and she is being discharged home. She is instructed to follow with her primary care physician as well as Cardiology in the outpatient setting and is being set up with [facility] as above. PHYSICAL EXAMINATION: She was seen and examined prior to discharge. VITAL SIGNS: This morning, temperature 97.6, pulse of 60, respirations 16, blood pressure this morni ng 177/82. No acute distress, awake, alert, and oriented x3. CHEST: Clear to auscultation bilaterally without any wheezing, rales or rhonchi. CARDIOVASCULAR: Rate and rhythm is regular without any murmur, rubs or gallops. LABORATORY EXAMINATION: Her respiratory viral panel is positive for human metapneumovirus. Discharge AST is 131, discharge ALT is 406 and discharge alkaline phosphatase is 179, lipase is anastasia l at 47. BNP has improved to 243 from 554. Discharge plan was discussed with the patient who verbalized understanding. All questions were answe red. Prescriptions were provided. Total time spent in the discharge of this patient 32 minutes.
== END 2017-09-21 14:12 | disposition home or self-care (01) ==
LOC: SCSER 16:10 → 2SW 18:30
PROVIDERS: ADMIT Internal Medicine; ATTEND Internal Medicine
DX: I13.0 Hypertensive heart and chronic kidney disease with heart failure and stage 1 through stage 4 chronic kidney disease, or unspecified chronic kidney disease (principal); N18.2 Chronic kidney disease, stage 2 (mild); I50.33 Acute on chronic diastolic (congestive) heart failure; J20.9 Acute bronchitis, unspecified; I44.7 Left bundle-branch block, unspecified; E78.5 Hyperlipidemia, unspecified; K76.1 Chronic passive congestion of liver; J18.9 Pneumonia, unspecified organism; Z88.0 Allergy status to penicillin; Z79.2 Long term (current) use of antibiotics; Z79.52 Long term (current) use of systemic steroids; Z79.899 Other long term (current) drug therapy; Z98.890 Other specified postprocedural states
CPT/HCPCS: 71045; 74176; 76705; 78226; 80048; 80053; 80076; 82553; 83690; 83735; 83880 ×2; 84100; 84484 ×4; 85025; 87633; 87798 ×2; 90670; 93005; 93306; 94640; 94760; 96374; 96375 ×3; 96376; 99285; A9537; G0009; G0378 ×2; 36415; 84443; 90471; 96361; J2270; A4216; J0360; J1940; J2405; J7620

== ENCOUNTER 2017-09-28 09:55 | Outpatient (CLI) | payer MEDICARE ==
--- NOTE | 2017-09-28 11:02 | RAD ---
TWO VIEW CHEST: History: Pneumonia follow up. Comparison: One view chest 09-23-17 and two view exam of 09-15-17. FINDINGS: There is linear stranding in the right midlung at the site of the previously noted infiltrative patte rn noted on 09-15-17. The hazy infiltrate noted previously appears to have cleared. There continues to be areas of linear stranding in the left upper lobe peripherally which was also de scribed as possible infiltrate on the 09-15-17 exam. This does appear significantly changed and may re present some chronic parenchymal change. Lungs otherwise clear. No vascular congestion or effusion. Heart size is normal. IMPRESSION: 1. Improvement in the right midlung infiltrate noted on 09-15-17. There is some residual stranding at this site. 2. Stranding and parenchymal density in the left upper lobe peripherally appears unchanged and may be chronic. Recommend continued follow up. POS: CHUCK
== END 2017-09-28 09:56 | disposition home or self-care (01) ==
LOC: RAD-FRANK 09:55
PROVIDERS: ATTEND Nurse Practitioner Family
DX: J18.9 Pneumonia, unspecified organism (principal); J98.4 Other disorders of lung
CPT/HCPCS: 71046

== ENCOUNTER 2021-10-21 09:03 | Outpatient (CLI) | payer MEDICARE | END 2021-10-21 09:04 | disposition home or self-care (01) | LOC: RAD-FRANK 09:03 | PROVIDERS: ATTEND Nurse Practitioner Family | DX: R06.02 Shortness of breath (principal) | CPT/HCPCS: 71046 ==